=== PATIENT | female | born 1950 | race Caucasian/White ===

== ENCOUNTER → 2017-06-17 | Outpatient (CLI) | payer OTHER ==
[~2017-06-17] MED LIST: ALEN10 PO; LEVSOD175 PO; LISI20 PO; METF500 PO; RANI150 PO; TOMOXIFIN
== END ==
LOC: PLD 13:06 → LAB SHORT 13:06
DX: C17.8 Malignant neoplasm of overlapping sites of small intestine (principal); Z85.3 Personal history of malignant neoplasm of breast
CPT/HCPCS: 88360